=== PATIENT | female | born 1995 | race Caucasian/White ===

== ENCOUNTER 2018-02-23 07:31 | Emergency (ER) | payer OTHER ==
[2018-02-23 07:44] VITALS: TEMP 98.2
--- NOTE | 2018-02-23 08:10 | ED ---
General Adult HPI - General Chief complaint: Abdominal Pain Stated complaint: Abdominal pain Source: patient Mode of arrival: ambulatory Limitations: no limitations - History of Present Illness Initial comments: Dictation was produced using [employer] dictation software. please excuse any grammatical, word or spelling errors. Chief Complaint: 22-year-old female past medical history of dental implant and frequent UTIs presents with suprapubic pain and burning on urination. History of Present Illness: Patient is a 22-year-old female who presents with frequent urinary tract infections. Her chief complaint is constitutional symptoms, subacute pain and dysuria. Patient has having difficulties with frequent urinary tract infections over the last month or so. She states that her symptoms started after getting a dental implant done. She was placed on prophylactic antibiotics after the procedure. After that she's been having frequent problems with urinary tract infections. Patient denies ever having had frequent urinary tract infections as a pediatric patient. Patient states that this morning she woke up in a pool of sweat. She feels as though she's been having fevers. 2 Motrin prior to coming to the hospital. Denies any flank pain or flank tenderness. Patient denies being she is on oral contraceptive medications. The ROS documented in this emergency department record has been reviewed and confirmed by me. Those systems with pertinent positive or negative responses have been documented in the HPI. All other systems are other negative and/or noncontributory. - Related Data Home Medications Medication Instructions Recorded Confirmed Ibuprofen [Motrin Ib] 400 mg PO DAILY 02/23/18 02/23/18 L.acidoph,Paracasei, B.lactis 1 cap PO DAILY 02/23/18 02/23/18 [Probiotic] Norethindrone-E.estradiol-Iron 1 tab PO DAILY 02/23/18 02/23/18 [Junel Fe 1 mg-20 Mcg Tablet] Previous Rx's Medication Instructions Recorded Levofloxacin [Levaquin] 750 mg PO DAILY 7 Days #7 tab 02/23/18 Allergies Allergy/AdvReac Type Severity Reaction Status Date / Time amoxicillin Allergy Rash/Hives Verified 02/23/18 09:36 cefprozil [From Cefzil] Allergy Rash/Hives Verified 02/23/18 09:36 nitrofurantoin Allergy Unknown Verified 02/23/18 09:36 [From Macrobid] Penicillins Allergy Rash/Hives Verified 02/23/18 09:36 Review of Systems ROS Statement: Those systems with pertinent positive or pertinent negative responses have been documented in the HPI. ROS Other: All systems not noted in ROS Statement are negative. Past Medical History Additional Past Medical History / Comment(s): UTI's History of Any Multi-Drug Resistant Organisms: None Reported Additional Past Surgical History / Comment(s): Dental surgery Past Psychological History: No Psychological Hx Reported Smoking Status: Never smoker Past Alcohol Use History: Occasional Past Drug Use History: None Reported General Exam - General Exam Comments Initial Comments: PHYSICAL EXAM: General Impression: Alert and oriented x3, not in acute distress HEENT: Normocephalic atraumatic, extra-ocular movements intact, pupils equal and reactive to light bilaterally, mucous membranes moist. Cardiovascular: Heart regular rate and rhythm, S1&S2 audible, no murmurs, rubs or gallops Chest: Lungs clear to auscultation bilaterally, no rhonchi, no wheeze, no rales Abdomen: Mild tenderness to the suprapubic area Musculoskeletal: Pulses present and equal in all extremities, no peripheral edema Motor: Power 5/5 bilaterally, no focal deficits noted Neurological: CN II-XII grossly intact, no focal motor or sensory deficits noted Skin: Intact with no visualized rashes Psych: Normal affect and mood Limitations: no limitations Course Vital Signs 02/23/18 07:41 Temperature 98.2 F Pulse Rate 66 Respiratory 16 Rate Blood Pressure 96/64 O2 Sat by Pulse 97 Oximetry Medical Decision Making - Medical Decision Making ED course: 42-year-old female with difficulties with urinary tract infections over the last couple months presents with suprapubic pain, dysuria constitutional symptoms. Signs upon arrival are within acceptable limits. Most recently patient completed a seven-day course of ciprofloxacin. Patient's symptoms were improved however as soon as she finished taking the antibiotics her symptoms recurred.Patient is having some constitutional symptoms. Laboratory evaluation obtained. CBC is unremarkable. Metabolic panel is unremarkable. There is no signs of renal dysfunction. Urinalysis shows findings to suggest urinary tract infection. Pelvic exam was performed. 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 There is findings on her cervix of HPV infection. Patient does have some white discharge noted on pelvic exam. No adnexal tenderness or cervical motion tenderness. Given that patient having difficulty manage urinary tract infections we opted to give her a dose of IV Levaquin. Patient states that she has ALLERGIES to a lot of other medications. Culture and sensitivities were reviewed from urgent care with adequate sensitivities to fluoroquinolones. Patient observed in emergency department following in stable medical condition. We will plan to give patient prescription for Levaquin to take outpatient. She is urged to follow up with urologist for evaluation due to recurrent urinary tract infections. Patient is understandable and agreeable to plan. - Lab Data Result diagrams: 02/23/18 08:25 02/23/18 08:25 Lab Results 02/23/18 02/23/18 02/23/18 Range/Units 07:55 07:55 08:25 WBC (3.8-10.6) k/uL RBC (3.80-5.40) m/uL Hgb (11.4-16.0) gm/dL Hct (34.0-46.0) % MCV (80.0-100.0) fL MCH (25.0-35.0) pg MCHC (31.0-37.0) g/dL RDW (11.5-15.5) % Plt Count (150-450) k/uL Neutrophils % % Lymphocytes % % Monocytes % % Eosinophils % % Basophils % % Neutrophils # (1.3-7.7) k/uL Lymphocytes # (1.0-4.8) k/uL Monocytes # (0-1.0) k/uL Eosinophils # (0-0.7) k/uL Basophils # (0-0.2) k/uL Sodium 141 (137-145) mmol/L Potassium 4.8 (3.5-5.1) mmol/L Chloride 108 H (98-107) mmol/L Carbon Dioxide 20 L (22-30) mmol/L Anion Gap 13 mmol/L BUN 13 (7-17) mg/dL Creatinine 0.67 (0.52-1.04) mg/dL Est GFR (CKD-EPI)AfAm >90 (>60 ml/min/1.73 sqM) Est GFR (CKD-EPI)NonAf >90 (>60 ml/min/1.73 sqM) Glucose 86 (74-99) mg/dL Calcium 9.6 (8.4-10.2) mg/dL Urine Color Yellow Urine Appearance Turbid H (Clear) Urine pH 6.5 (5.0-8.0) Ur Specific Ellis 1.021 (1.001-1.035) Urine Protein 1+ H (Negative) Urine Glucose (UA) Negative (Negative) Urine Ketones Negative (Negative) Urine Blood Moderate H (Negative) Urine Nitrite Negative (Negative) Urine Bilirubin Negative (Negative) Urine Urobilinogen <2.0 (<2.0) mg/dL Ur Leukocyte Esterase Large H (Negative) Urine RBC 39 H (0-5) /hpf Urine WBC >182 H (0-5) /hpf Urine WBC Clumps Many H (None) /hpf Ur Squamous Epith Cells 14 H (0-4) /hpf Urine Bacteria Rare H (None) /hpf Urine Mucus Many H (None) /hpf Urine HCG, Qual Not Detected (Not Detectd) 02/23/18 Range/Units 08:25 WBC 8.0 (3.8-10.6) k/uL RBC 4.62 (3.80-5.40) m/uL Hgb 14.1 (11.4-16.0) gm/dL Hct 43.0 (34.0-46.0) % MCV 93.1 (80.0-100.0) fL MCH 30.6 (25.0-35.0) pg MCHC 32.9 (31.0-37.0) g/dL RDW 12.4 (11.5-15.5) % Plt Count 301 (150-450) k/uL Neutrophils % 69 % Lymphocytes % 20 % Monocytes % 6 % Eosinophils % 2 % Basophils % 0 % Neutrophils # 5.5 (1.3-7.7) k/uL Lymphocytes # 1.6 (1.0-4.8) k/uL Monocytes # 0.5 (0-1.0) k/uL Eosinophils # 0.2 (0-0.7) k/uL Basophils # 0.0 (0-0.2) k/uL Sodium (137-145) mmol/L Potassium (3.5-5.1) mmol/L Chloride (98-107) mmol/L Carbon Dioxide (22-30) mmol/L Anion Gap mmol/L BUN (7-17) mg/dL Creatinine (0.52-1.04) mg/dL Est GFR (CKD-EPI)AfAm (>60 ml/min/1.73 sqM) Est GFR (CKD-EPI)NonAf (>60 ml/min/1.73 sqM) Glucose (74-99) mg/dL Calcium (8.4-10.2) mg/dL Urine Color Urine Appearance (Clear) Urine pH (5.0-8.0) Ur Specific Ellis (1.001-1.035) Urine Protein (Negative) Urine Glucose (UA) (Negative) Urine Ketones (Negative) Urine Blood (Negative) Urine Nitrite (Negative) Urine Bilirubin (Negative) Urine Urobilinogen (<2.0) mg/dL Ur Leukocyte Esterase (Negative) Urine RBC (0-5) /hpf Urine WBC (0-5) /hpf Urine WBC Clumps (None) /hpf Ur Squamous Epith Cells (0-4) /hpf Urine Bacteria (None) /hpf Urine Mucus (None) /hpf Urine HCG, Qual (Not Detectd) Disposition Clinical Impression: UTI (urinary tract infection) Disposition: HOME SELF-CARE Condition: Good Prescriptions: Levofloxacin [Levaquin] 750 mg PO DAILY 7 Days #7 tab Is patient prescribed a controlled substance at d/c from ED?: No Referrals: Mono Bailon MD [Primary Care Provider] - 1-2 days Kevin Lebron MD [STAFF PHYSICIAN] - 1-2 days Time of Disposition: 10:00
[2018-02-23 08:40] LABS: Basophils % (A) 0 %; Eosinophils # (A) 0.2 k/uL (0-0.7); Eosinophils % (A) 2 %; HGB 14.1 gm/dL (11.4-16.0); Lymphocytes # (A) 1.6 k/uL (1.0-4.8); Lymphocytes % (A) 20 %; MCH 30.6 pg (25.0-35.0); MCHC 32.9 g/dL (31.0-37.0); MCV 93.1 fL (80.0-100.0); Monocytes # (A) 0.5 k/uL (0-1.0); Monocytes % (A) 6 %; Neutrophils # (A) 5.5 k/uL (1.3-7.7); Neutrophils % (A) 69 %; Platelet Count 301 k/uL (150-450); RBC 4.62 m/uL (3.80-5.40); RDW 12.4 % (11.5-15.5)
[2018-02-23] MEDS ORDERED: LEVOFLOXACIN 750MG-D5W PMX 750 MG in DEXTROSE/WATER 1 150ML.BAG IVPB STA (08:41)
[2018-02-23 08:52] LABS: Anion Gap 13 mmol/L; Blood Urea Nitrogen 13 mg/dL (7-17); Calcium 9.6 mg/dL (8.4-10.2); Carbon Dioxide 20 mmol/L (22-30); Chloride 108 mmol/L (98-107); Glucose 86 mg/dL (74-99); Sodium 141 mmol/L (137-145)
[2018-02-23 08:56] LABS: Appearance,Urine Turbid (Clear); Bacteria,Urine Rare /hpf; Bilirubin,Urine Negative (Negative); Blood,Urine Moderate (Negative); Color,Urine Yellow; Glucose,Urine (UA) Negative (Negative); Ketones,Urine Negative (Negative); Leukocyte Esterase,Urine Large (Negative); Mucus,Urine Many /hpf; Nitrite,Urine Negative (Negative); PH, Urine 6.5 (5.0-8.0); Protein,Urine 1+ (Negative); RBC,Urine 39 /hpf (0-5); Specific Gravity,Urine 1.021 (1.001-1.035); Squamous Epithelial Cell,Urine 14 /hpf (0-4); Urobilinogen,Urine <2.0 mg/dL (<2.0); WBC,Urine >182 /hpf (0-5)
[2018-02-23 09:08] LABS: Potassium 4.8 mmol/L (3.5-5.1)
[2018-02-23 10:56] VITALS: BP 106/78; PULSE 89; RESP 18
== END 2018-02-23 10:56 | disposition home or self-care (01) ==
LOC: EC 07:31
DX: N39.0 Urinary tract infection, site not specified (principal); Z88.0 Allergy status to penicillin; Z88.1 Allergy status to other antibiotic agents
CPT/HCPCS: 36415; 80048; 85025; 81001; 81025; 87040; 87808; 87491; 87591; 87086; 99284; 96365; J1956

== ENCOUNTER 2018-06-16 14:27 | Emergency (ER) | payer OTHER ==
[2018-06-16 14:52] VITALS: BP 124/71; PULSE 83; RESP 18; TEMP 98.3
--- NOTE | 2018-06-16 14:52 | ED ---
General Adult HPI - General Chief complaint: Urogenital Stated complaint: UTI Time Seen by Provider: 06/16/18 14:36 Source: patient, RN notes reviewed, old records reviewed Mode of arrival: ambulatory Limitations: no limitations - History of Present Illness Initial comments: 22-year-old female patient no pertinent past medical history presents to ED with approximately 1 week of waxing and waning urgency urgency and dysuria. Patient believes she has urinary tract infection. Patient states that she is not . Patient denies concern for STI. Patient denies any other complaints. Patient denies fever/chills, flank pain, abdominal pain. Patient denies chest pain, shortness of breath. Systemic: Pt denies fatigue, myalgia, fever/chills, rash. Pt denies weakness, night sweats, weight loss. Neuro: Pt denies headache, visual disturbances, syncope or pre-syncope. HEENT: Pt denies ocular discharge or irritation, otalgia, rhinorrhea, pharyngitis or notable lymphadenopathy. Cardiopulmonary: Pt denies chest pain, SOB, heart palpitations, dyspnea on exertion. Abdominal/GI: Pt denies abdominal pain, n/v/d. : Denies new onset urinary or bowel incontinence. MSK: Pt denies myalgia, loss of strength or function in extremities. Neuro: Pt denies new onset weakness, paresthesias. - Related Data Home Medications Medication Instructions Recorded Confirmed Ibuprofen [Motrin Ib] 400 mg PO DAILY 02/23/18 02/23/18 L.acidoph,Paracasei, B.lactis 1 cap PO DAILY 02/23/18 02/23/18 [Probiotic] Norethindrone-E.estradiol-Iron 1 tab PO DAILY 02/23/18 02/23/18 [Junel Fe 1 mg-20 Mcg Tablet] Previous Rx's Medication Instructions Recorded Levofloxacin [Levaquin] 750 mg PO DAILY 7 Days #7 tab 02/23/18 Levofloxacin [Levaquin] 750 mg PO DAILY 7 Days #7 tab 06/16/18 Allergies Allergy/AdvReac Type Severity Reaction Status Date / Time amoxicillin Allergy Rash/Hives Verified 02/23/18 09:36 cefprozil [From Cefzil] Allergy Rash/Hives Verified 02/23/18 09:36 nitrofurantoin Allergy Unknown Verified 02/23/18 09:36 [From Macrobid] Penicillins Allergy Rash/Hives Verified 02/23/18 09:36 Review of Systems ROS Statement: Those systems with pertinent positive or pertinent negative responses have been documented in the HPI. ROS Other: All systems not noted in ROS Statement are negative. Past Medical History Additional Past Medical History / Comment(s): UTI's History of Any Multi-Drug Resistant Organisms: None Reported Past Surgical History: No Surgical Hx Reported Additional Past Surgical History / Comment(s): Dental surgery Past Psychological History: No Psychological Hx Reported Smoking Status: Never smoker Past Alcohol Use History: Occasional Past Drug Use History: None Reported General Exam - General Exam Comments Initial Comments: Constitutional: NAD, AOX3, Pt has pleasant affect. HEENT: NC/AT, trachea midline, neck supple, no lymphadenopathy. Posterior pharynx non erythematous, without exudates. External ears appear normal, without discharge. Mucous membranes moist. Eyes PERRLA, EOM intact. There is no scleral icterus. No pallor noted. Cardiopulmonary: RRR, no murmurs, rubs or gallops, no JVD noted. Lungs CTAB in anterior and posterior eng. No peripheral edema. Abdominal exam: Abdomen soft and non-distended. Very mild amount of suprapubic tenderness, no other areas of abdominal tenderness. Bowel sounds active in LLQ. No hepatosplenomegaly. No ecchymosis. No CVA tenderness. Neuro: CN II-XII grossly intact. No nuchal rigidity. MSK: No posterior calf tenderness bilaterally, homans sign negative bilaterally. Posterior tibialis and radial pulse +2 bilaterally. Sensation intact in upper and lower extremities. Full active ROM in upper and lower extremities, 5/5 stregnth. Limitations: no limitations Course Vital Signs 06/16/18 14:35 Temperature 98.3 F Pulse Rate 83 Respiratory 18 Rate Blood Pressure 124/71 O2 Sat by Pulse 96 Oximetry Medical Decision Making - Medical Decision Making 22-year-old female patient no pertinent past medical history presents to ED with approximately 1 week of waxing and waning urgency urgency and dysuria. Patient believes she has urinary tract infection. Patient states that she is not . Patient denies concern for STI. Patient denies any other complaints. Patient denies fever/chills, flank pain, abdominal pain. Patient denies chest pain, shortness of breath. Pt vss, afebrile. Physical exam displayed a very mild amount of suprapubic tenderness, no other abdominal tenderness. No flank tenderness, cva tenderness negative. UA revealed urinary tract infection. Patient to be treated for urinary tract infection with Levaquin. Patient to have close outpatient follow-up both with primary care physician and with urology. Patient agreeable with plan. Patient to have low threshold for return to ED including, fever/chills, flank pain, abdominal pain. Patient verbalized understanding. Case discussed in depth with Dr. Martinez. - Lab Data Lab Results 06/16/18 06/16/18 Range/Units 14:45 14:45 Urine Color Yellow Urine Appearance Turbid H (Clear) Urine pH 6.5 (5.0-8.0) Ur Specific Lyman 1.017 (1.001-1.035) Urine Protein 1+ H (Negative) Urine Glucose (UA) Negative (Negative) Urine Ketones Negative (Negative) Urine Blood Small H (Negative) Urine Nitrite Negative (Negative) Urine Bilirubin Negative (Negative) Urine Urobilinogen <2.0 (<2.0) mg/dL Ur Leukocyte Esterase Large H (Negative) Urine RBC 34 H (0-5) /hpf Urine WBC >182 H (0-5) /hpf Urine WBC Clumps Many H (None) /hpf Ur Squamous Epith Cells 10 H (0-4) /hpf Urine Mucus Occasional H (None) /hpf Urine HCG, Qual Not Detected (Not Detectd) Disposition Clinical Impression: UTI (urinary tract infection) Disposition: HOME SELF-CARE Condition: Stable Instructions (If sedation given, give patient instructions): Urinary Tract Infection in Women (ED) Additional Instructions: Patient to adhere to previously discussed treatment plan and will take medication(s) as directed. Patient to follow up with PCP in 1-2 days. Patient to return to ED if symptoms do not improve. Please call urology and primary care physician today for close outpatient follow up. Have low threshold for return to ED including fever/chills, flank pain, n/v/d, or any other new symptoms. Prescriptions: Levofloxacin [Levaquin] 750 mg PO DAILY 7 Days #7 tab Is patient prescribed a controlled substance at d/c from ED?: No Referrals: Mono Bailon MD [Primary Care Provider] - 1-2 days Isak Garcia MD [STAFF PHYSICIAN] - 1-2 days Time of Disposition: 15:33
[2018-06-16 15:14] LABS: Appearance,Urine Turbid (Clear); Bilirubin,Urine Negative (Negative); Blood,Urine Small (Negative); Color,Urine Yellow; Glucose,Urine (UA) Negative (Negative); Ketones,Urine Negative (Negative); Leukocyte Esterase,Urine Large (Negative); Mucus,Urine Occasional /hpf; Nitrite,Urine Negative (Negative); PH, Urine 6.5 (5.0-8.0); Protein,Urine 1+ (Negative); RBC,Urine 34 /hpf (0-5); Specific Gravity,Urine 1.017 (1.001-1.035); Squamous Epithelial Cell,Urine 10 /hpf (0-4); Urobilinogen,Urine <2.0 mg/dL (<2.0)
== END 2018-06-16 15:57 | disposition home or self-care (01) ==
LOC: EC 14:27
DX: N39.0 Urinary tract infection, site not specified (principal); Z79.3 Long term (current) use of hormonal contraceptives; Z79.1 Long term (current) use of non-steroidal anti-inflammatories (NSAID); Z79.899 Other long term (current) drug therapy; Z88.0 Allergy status to penicillin; Z88.1 Allergy status to other antibiotic agents
CPT/HCPCS: 81001; 81025; 87086; 99284

== ENCOUNTER → 2018-08-29 | Outpatient (CLI) | payer OTHER ==
--- NOTE | 2018-08-30 08:02 | US ---
EXAMINATION TYPE: US kidneys/renal and bladder DATE OF EXAM: 08/29/2018 COMPARISON: NONE CLINICAL HISTORY: N39.0 frequent UTI's. EXAM MEASUREMENTS: Right Kidney: 10.7 x 3.9 x 5.4 cm Left Kidney: 10.5 x 6.1 x 4.6 cm Right Kidney: No hydronephrosis or masses seen Left Kidney: No hydronephrosis or masses seen Bladder: wnl Bilateral Jets seen: Yes There is no evidence for hydronephrosis at this point in time. No nephrolithiasis is seen. No elliot s are identified. The urinary bladder is anechoic. Bilateral ureteral jets are seen. IMPRESSION: No distinct abnormality seen
== END | disposition home or self-care (01) ==
LOC: RADUSWWP 15:26
PROVIDERS: ATTEND Urology
DX: N39.0 Urinary tract infection, site not specified (principal)
CPT/HCPCS: 76770